=== PATIENT | male | born 1975 | race Caucasian/White ===

== ENCOUNTER 2021-07-04 19:42 | Emergency (ER) | payer SELFPAY ==
[~2021-07-04] VITALS: Ht 167.6 cm; Wt 91.0 kg
[2021-07-04 20:44] VITALS: BP 121/84
[2021-07-04] MEDS ORDERED: CYCL5TAB MT (21:39)
[2021-07-04] MEDS ORDERED: KETOROLAC 15MG/ML VIAL IM ONE (21:45)
== END 2021-07-04 22:56 | disposition home or self-care (01) ==
LOC: ER 19:42
DX: S39.012A Strain of muscle, fascia and tendon of lower back, initial encounter (principal); X58.XXXA Exposure to other specified factors, initial encounter; Y93.9 Activity, unspecified; Y92.9 Unspecified place or not applicable
CPT/HCPCS: 96372; 99283; J1885